=== PATIENT | male | born 1985 | race American Indian/Alaskan Native ===

== ENCOUNTER 2018-12-01 12:04 | Emergency (ER) | payer SELFPAY ==
[2018-12-01 12:48] LABS: Basophils # (Auto) 0.1 K/mm3 (0.0-0.1); Basophils % (Auto) 0.8 % (0.0-1.8); Eosinophils % (Auto) 0.1 % (0.0-4.3); Hematocrit 39.4 % (35.5-45.6); Hemoglobin 13.2 gm/dl (11.8-15.2); Lymphocytes # (Auto) 1.4 K/mm3 (1.2-5.4); Mean Corpuscular HGB Conc 34 % (32-34); Mean Corpuscular Volume 93 fl (84-94); Monocytes # (Auto) 0.8 K/mm3 (0.0-0.8); Monocytes % (Auto) 6.7 % (0.0-7.3); Platelet Count 277 K/mm3 (140-440); Red Blood Count 4.25 M/mm3 (3.65-5.03)
--- NOTE | 2018-12-01 12:51 | Emergency Department Report ---
HPI - General Chief Complaint: Psych Time Seen by Provider: 12/01/18 12:30 - HPI HPI: Room 7 The patient is 32-year-old male presenting with a chief complaint altered mental status. Per EMS the patient was found by police knocking on doors in the [facility] ent complex. The patient states he did so just so he could "make sure everything is alright." The patient states she came to the emergency department because he needs medications to help him focus. Patient denies suicidal or homicidal ideation. Patient denied auditory or visual hallucinations but at times appears to be responding to internal stimuli Location: Mental state Duration: [See above] Quality: Odd affect Severity: Moderate Modifying factors: [see above] Context: [see above] Mode of transportation: [not driving] ED Past Medical Hx - Past Medical History Hx Psychiatric Treatment: Yes (ADD, depression) - Surgical History Past Surgical History?: No - Family History Family history: no significant - Social History Smoking Status: Current Some Day Smoker (1/2 pack per day) Substance Use Type: Marijuana - Medications Home Medications: Home Medications Medication Instructions Recorded Confirmed Last Taken Type No Known Home Medications [No 06/17/14 06/17/14 Unknown History Reported Home Medications] ED Review of Systems ROS: Stated complaint: PSYCH EVAL Other details as noted in HPI Constitutional: no symptoms reported Eyes: denies: eye pain ENT: denies: throat pain Respiratory: no symptoms reported Cardiovascular: denies: chest pain Endocrine: no symptoms reported Gastrointestinal: denies: abdominal pain Genitourinary: denies: dysuria Musculoskeletal: denies: back pain Neurological: denies: headache Psychiatric: denies: auditory hallucinations, visual hallucinations, homicidal thoughts, suicidal thoughts Physical Exam - Physical Exam Vital Signs: Vital Signs 12/01/18 12:20 Temperature 98 F Pulse Rate 82 Respiratory 18 Rate Blood Pressure 145/69 O2 Sat by Pulse 99 Oximetry Physical Exam: GENERAL: The patient is well-developed well-nourished male sitting on stretcher not appearing to be in acute distress. Patient an odd/flat affect HEENT: Normocephalic. Atraumatic. Extraocular motions are intact. Patient has moist mucous membranes. NECK: Supple. No meningitic signs are noted. Trachea midline CHEST/LUNGS: Clear to auscultation. There is no respiratory distress noted. HEART/CARDIOVASCULAR: Regular. There is no tachycardia. There is no gallop rub or murmur. ABDOMEN: Abdomen is soft, nontender. Patient has normal bowel sounds. There is no abdominal distention. SKIN: There is no rash. There is no edema. There is no diaphoresis. NEURO: The patient is awake, alert, and oriented. The patient is cooperative. The patient has no focal neurologic deficits. The patient has normal speech MUSCULOSKELETAL: There is no evidence of acute injury. ED Course Vital Signs 12/01/18 12:20 Temperature 98 F Pulse Rate 82 Respiratory 18 Rate Blood Pressure 145/69 O2 Sat by Pulse 99 Oximetry ED Medical Decision Making - Lab Data Result diagrams: 12/01/18 12:34 12/01/18 12:34 Laboratory Tests 12/01/18 12/01/18 12/01/18 12:31 12:31 12:34 WBC RBC Hgb Hct MCV MCH MCHC RDW Plt Count Lymph % (Auto) [place] % (Auto) Eos % (Auto) Baso % (Auto) Lymph # [place] # Eos # Baso # Seg Neutrophils % Seg Neutrophils # Sodium Potassium Chloride Carbon Dioxide Anion Gap BUN Creatinine Estimated GFR BUN/Creatinine Ratio Glucose Calcium Urine Color Yellow Urine Turbidity Slightly-cloudy Urine pH 6.0 Ur Specific [place] 1.023 Urine Protein 30 mg/dl Urine Glucose (UA) Neg Urine Ketones Tr Urine Blood Neg Urine Nitrite Neg Urine Bilirubin Neg Urine Urobilinogen < 2.0 Ur Leukocyte Esterase Neg Urine WBC (Auto) 1.0 Urine RBC (Auto) 4.0 Urine Mucus Few Urine Sperm 2+ Salicylates < 0.3 L Urine Opiates Screen Presumptive negative Urine Methadone Screen Presumptive negative Acetaminophen Ur Barbiturates Screen Presumptive negative Ur Phencyclidine Scrn Presumptive negative Ur Amphetamines Screen Presumptive positive U Benzodiazepines Scrn Presumptive negative Urine Cocaine Screen Presumptive negative U Marijuana (THC) Screen Presumptive negative Drugs of Abuse Note Disclamer Plasma/Serum Alcohol 12/01/18 12/01/18 12/01/18 12:34 12:34 12:34 WBC RBC Hgb Hct MCV MCH MCHC RDW Plt Count Lymph % (Auto) [place] % (Auto) Eos % (Auto) Baso % (Auto) Lymph # [place] # Eos # Baso # Seg Neutrophils % Seg Neutrophils # Sodium 145 Potassium 3.8 Chloride 104.5 Carbon Dioxide 28 Anion Gap 16 BUN 8 L Creatinine 1.0 Estimated GFR > 60 BUN/Creatinine Ratio 8 Glucose 105 H Calcium 9.8 Urine Color Urine Turbidity Urine pH Ur Specific [place] Urine Protein Urine Glucose (UA) Urine Ketones Urine Blood Urine Nitrite Urine Bilirubin Urine Urobilinogen Ur Leukocyte Esterase Urine WBC (Auto) Urine RBC (Auto) Urine Mucus Urine Sperm Salicylates Urine Opiates Screen Urine Methadone Screen Acetaminophen < 5.0 L Ur Barbiturates Screen Ur Phencyclidine Scrn Ur Amphetamines Screen U Benzodiazepines Scrn Urine Cocaine Screen U Marijuana (THC) Screen Drugs of Abuse Note Plasma/Serum Alcohol < 0.01 12/01/18 12:34 WBC 12.5 H RBC 4.25 Hgb 13.2 Hct 39.4 MCV 93 MCH 31 MCHC 34 RDW 13.0 L Plt Count 277 Lymph % (Auto) 11.0 L [place] % (Auto) 6.7 Eos % (Auto) 0.1 Baso % (Auto) 0.8 Lymph # 1.4 Cocke # 0.8 Eos # 0.0 Baso # 0.1 Seg Neutrophils % 81.4 H Seg Neutrophils # 10.1 H Sodium Potassium Chloride Carbon Dioxide Anion Gap BUN Creatinine Estimated GFR BUN/Creatinine Ratio Glucose Calcium Urine Color Urine Turbidity Urine pH Ur Specific [place] Urine Protein Urine Glucose (UA) Urine Ketones Urine Blood Urine Nitrite Urine Bilirubin Urine Urobilinogen Ur Leukocyte Esterase Urine WBC (Auto) Urine RBC (Auto) Urine Mucus Urine Sperm Salicylates Urine Opiates Screen Urine Methadone Screen Acetaminophen Ur Barbiturates Screen Ur Phencyclidine Scrn Ur Amphetamines Screen U Benzodiazepines Scrn Urine Cocaine Screen U Marijuana (THC) Screen Drugs of Abuse Note Plasma/Serum Alcohol - Differential Diagnosis psychosis, delusional, intracranial mass, substance abuse Critical care attestation.: If time is entered above; I have spent that time in minutes in the direct care of this critically ill patient, excluding procedure time. ED Disposition Clinical Impression: Amphetamine abuse, Altered mental status Disposition: DC/TX-65 PSY HOSP/PSY UNIT Is pt being admited?: No Does the pt Need Aspirin: No Condition: Stable Time of Disposition: 14:16 (awaiting acceptance)
[2018-12-01 13:05] LABS: Bilirubin,Urine NEG (Negative); Blood,Urine NEG (Negative); Color,Urine Yellow (Yellow); Mucus,Urine FEW /HPF; Sperm,Urine 2+ /HPF (NP); Urobilinogen,Urine < 2.0 mg/dL (<2.0)
[2018-12-01 13:07] LABS: BUN/Creatinine Ratio 8; Blood Urea Nitrogen 8 mg/dL (9-20); Calcium 9.8 mg/dL (8.4-10.2); Hemolysis Index 1
[2018-12-01 13:11] LABS: Benzodiazepines Screen,Urine PRESUMPTIVE NEGATIVE; Cannabinoid Screen,Urine PRESUMPTIVE NEGATIVE; Cocaine Screen,Urine PRESUMPTIVE NEGATIVE; Methadone Screen,Urine PRESUMPTIVE NEGATIVE; Opiate Screen,Urine PRESUMPTIVE NEGATIVE
[2018-12-01 13:24] LABS: Amphetamine Screen,Urine PRESUMPTIVE POSITIVE
--- NOTE | 2018-12-01 14:09 | Cat Scan Report ---
CT scan of head without IV contrast: History: Medical clearance site. Findings: Ventricles are normal in size and midline in location. No evidence of acute ischemia, hemorrhage or mass. No extra axial fluid collection. Normal brainstem and cerebellum. Normal visualized sinuses and mastoid air cells. Impression: No acute intracranial abnormality.
--- NOTE | 2018-12-02 13:08 | Consultation ---
History of Present Illness - Reason for Consult Consult date: 12/02/18 Reason for consult: Mental Health Evaluation Requesting physician: TIFFANY SÁNCHEZ - Chief Complaint Chief complaint: "I was only trying to find a ayoub" - History of Present Psychiatric Illness 32-year-old AA male who presented to the ER for bizarre behavior. He was knocking on doors in the his apartment complex. Today the patient is calm, but disorganized during the assessment. He stated that he was looking for ayoub to get into the "weight room" at his apartment complex. His answers to questions were not logical. He pauses often to answer questions, possibly responding to some type of stimuli. Overall, the patient isn't a good historian at this time. No gestures of SI/Hi's. Medications and Allergies Allergies Allergy/AdvReac Type Severity Reaction Status Date / Time No Known Allergies Allergy Unverified 06/17/14 23:29 Home Medications Medication Instructions Recorded Confirmed Last Taken Type No Known Home Medications [No 12/01/18 12/01/18 Unknown History Reported Home Medications] Past psychiatric history - Past Medical History Past Medical History: No medical history Past Surgical History: No surgical history - past Psychiatric treatment and history psychiatric treatment history: Hx of substance abuse. Denies a fam psy hx. - Social History Social history: lives with family Mental Status Exam - Vital signs Last Vital Signs Temp 98.4 F 12/02/18 07:53 Pulse 120 H 12/02/18 07:53 Resp 20 12/02/18 07:53 BP 136/91 12/02/18 07:53 Pulse Ox 99 12/02/18 07:53 - Exam Narrative exam: MSE: Appearance: calm, cooperative Behavior: regular eye contact Speech: regular rate and tone Mood: "okay" Affect: congruent to mood Thought Process: disorganized Thought Content: no gestures of SI/HI's, paranoia Motor Activity: ambulatory Cognition: A/O x3 Insight: poor Judgment: poor Results Result Diagrams: 12/01/18 12:34 12/01/18 12:34 Abnormal lab results 12/01/18 12/01/18 12/01/18 Range/Units 12:34 12:34 12:34 BUN 8 L (9-20) mg/dL Glucose 105 H (75-100) mg/dL Salicylates < 0.3 L (2.8-20.0) mg/dL Acetaminophen < 5.0 L (10.0-30.0) ug/mL All other labs normal. Assessment and Plan Assessment and plan: Impression: Unspecified Psychosis. Substance Use Do (amphetamines). Today the patient is calm, but disorganized during the assessment. DDx: Substance Induced Psychosis Recommendation/Plan: Continue 1013 and start Seroquel 100 mg Po HS for psychosis. Attempted to discuss possible metabolic side effects of Seroquel with the patient. Dispo: The patient was referred to inpatient psy services. Staffed with Dr Benny Hurt.
--- NOTE | 2018-12-03 15:09 | Progress Note ---
Subjective - Reason for Consult Consult date: 12/03/18 Reason for consult: Psychiatric Follow-up Evaluation - Chief Complaint Chief complaint: "I'm good" Patient is a 32-year-old AA male who presented to the ER for bizarre behavior. He was knocking on doors in the his apartment complex. He states that he was looking for ayoub to get into the "weight room" at his apartment complex. He states, " I don't know why they brought me here. I was wandering. I had a lot on my mind." Today the patient is calm, but disorganized during the assessment. He continues to exhibit bizarre behavior. Patient appears to be thought blocking and internally preoccupied. Patient responses are delayed and inappropriate. He reports appropriate sleep and appetite. Mental Status Exam - Vital signs Last Vital Signs Temp 98.0 F 12/03/18 14:24 Pulse 118 H 12/03/18 14:24 Resp 17 12/03/18 14:24 BP 131/85 12/03/18 14:24 Pulse Ox 100 12/03/18 14:24 - Exam Narrative exam: Mental Status Exam Appearance: calm, cooperative Behavior: regular eye contact Speech: regular rate and tone; delayed responses Mood: "I'm good" Affect: congruent to mood Thought Process: disorganized, loose associations, thought blocking, impoverished Thought Content: no gestures of SI/HI's; paranoia and internally preoccupied Motor Activity: ambulatory Cognition: A/O x 3 Insight: poor Judgment: poor Assessment and Plan Impression: Unspecified Psychosis. Substance Use Do (amphetamines). Today the patient is calm, but disorganized during the assessment. Patient is attempting to minimize psychosis, although symptoms are overt. DDx: Substance Induced Psychosis Recommendation/Plan: 1. Continue 1013. 2. Start Seroquel 200 mg Po HS for psychosis. Attempted to discuss possible metabolic side effects of Seroquel with the patient. Disposition: The patient was referred to inpatient psychiatric services. Staffed with Dr. Benny Hurt.
--- NOTE | 2018-12-04 13:43 | Progress Note ---
Subjective - Reason for Consult Consult date: 12/04/18 Reason for consult: Psychiatric Follow-up Evaluation - Chief Complaint Chief complaint: "I'm feeling good" Patient is a 32-year-old AA male who presented to the ER for bizarre behavior. Today the patient is calm, but disorganized during the assessment. He continues to exhibit bizarre behavior. Patient appears to be thought blocking and internally preoccupied. Patient responses are delayed and inappropriate. Today his thoughts/insight is improved. He verbalizes " I need medicine for my head." He reports appropriate sleep and appetite. Patient is intrusive with poor boundaries. Patient endorses intermittent suicidal ideations, paranoid delusions, and auditory hallucinations. He denies HI's. Patient is medication compliant. No side effects noted/reported. Mental Status Exam - Vital signs Last Vital Signs Temp 97.4 F L 12/04/18 08:02 Pulse 134 H 12/04/18 08:02 Resp 18 12/04/18 09:28 BP 111/63 12/04/18 08:02 Pulse Ox 95 12/04/18 08:02 - Exam Narrative exam: Mental Status Exam Appearance: calm, cooperative Behavior: regular eye contact Speech: regular rate and tone; delayed responses Mood: "I'm good" Affect: congruent to mood Thought Process: disorganized, loose associations, thought blocking, impoverished Thought Content: no gestures of HI's; + SI's, AH's, and paranoid delusions Motor Activity: ambulatory Cognition: A/O x 3 Insight: poor Judgment: poor Assessment and Plan Impression: Unspecified Psychosis. Substance Use Do (amphetamines). Today the patient is calm, but disorganized during the assessment. Patient endorses intermittent SI's and psychosis. DDx: Substance Induced Psychosis Recommendation/Plan: 1. Continue 1013. 2. Continue Seroquel 200 mg Po HS for psychosis. Attempted to discuss possible metabolic side effects of Seroquel with the patient. Disposition: The patient referred to inpatient psychiatric services. Staffed with Dr. Benny Hurt.
--- NOTE | 2018-12-05 09:57 | Progress Note ---
Subjective - Reason for Consult Consult date: 12/05/18 Reason for consult: Psychiatry Follow-up - Chief Complaint Chief complaint: "I need to out of here" 32-year-old AA male who presented to the ER for bizarre behavior. Today the patient is calm and cooperative during the assessment. He stated that he is well enough to be discharged. The patient is more lucid today per the EMR. He stated that has a "job to get too." He sated that he will consider rehab services when discharged. He denies SI/HI's and AVH's. He denies any side effects of his medication. i Mental Status Exam - Vital signs Last Vital Signs Temp 97.7 F 12/05/18 08:14 Pulse 82 12/05/18 08:14 Resp 18 12/05/18 08:14 BP 101/68 12/05/18 08:14 Pulse Ox 99 12/05/18 08:14 - Exam Narrative exam: MSE: Appearance: calm, cooperative Behavior: regular eye contact Speech: regular rate and tone Mood: "okay" Affect: congruent to mood Thought Process: circumstantial Thought Content: denies SI/Hi's and AVH's Motor Activity: ambulatory Cognition: A/O x3 Insight: variable to fair Judgment: variable to fair Assessment and Plan Impression: Unspecified Psychosis. Substance Use DO (amphetamines). Today the patient is calm, but disorganized during the assessment. DDx: Substance Induced Psychosis Recommendation/Plan: Reevaluate the patient's 1013 in 24 hours. Continue Seroquel 200 mg Po HS for psychosis. Discussed possible metabolic side effects of Seroquel with the patient, he verbalized understanding. Dispo: If the patient's 1013 is rescinded in 24 hours, he can follow up with [facility] for outpatient pay services. Staffed with Dr Benny Hurt.
[2018-12-06 07:40] VITALS: BP 117/73
--- NOTE | 2018-12-06 08:20 | Progress Note ---
Subjective - Reason for Consult Consult date: 12/06/18 Reason for consult: Psychiatry Follow-up - Chief Complaint Chief complaint: "I'm well" 32-year-old AA male who presented to the ER for bizarre behavior. Today the patient is calm and cooperative during the assessment. He stated that he plan to follow up with outpatient rehab services. He stated he must get his life together. He denies SI/HI's and AVH's. He denies any side effects of his medications. Mental Status Exam - Vital signs Last Vital Signs Temp 97.8 F 12/06/18 07:39 Pulse 98 H 12/06/18 07:39 Resp 18 12/06/18 07:39 BP 117/73 12/06/18 07:39 Pulse Ox 99 12/06/18 07:39 - Exam Narrative exam: MSE: Appearance: calm, cooperative Behavior: regular eye contact Speech: regular rate and tone Mood: "okay" Affect: congruent to mood Thought Process: more organized Thought Content: denies SI/Hi's and AVH's Motor Activity: ambulatory Cognition: A/O x3 Insight: appropriate Judgment: appropriate Assessment and Plan Impression: Unspecified Psychosis. Substance Use DO (amphetamines). Today the patient is calm and cooperative during the assessment. The patient's psychosis has resolved. DDx: Substance Induced Psychosis Recommendation/Plan: Rescind 1013. Discussed the importance to abstain from recreational drug use with the patient. he verbalized understanding. Dispo: The patient can follow up with [facility] for outpatient rehab services. Will staff with Dr Benny Hurt.
== END 2018-12-06 09:53 | disposition home or self-care (01) ==
LOC: EEVIPCON 12:04 → ED 12:04
DX: F29 Unspecified psychosis not due to a substance or known physiological condition (principal); R41.82 Altered mental status, unspecified; F15.10 Other stimulant abuse, uncomplicated; F32.9 Major depressive disorder, single episode, unspecified; F17.200 Nicotine dependence, unspecified, uncomplicated
CPT/HCPCS: 36415; 70450; 80048; 80307; 81001; 85025; 99285; G0480; 80320

== ENCOUNTER 2020-05-15 01:36 | Emergency (ER) | payer SELFPAY | END 2020-05-15 02:00 | disposition left against medical advice (07) | LOC: ED 01:36 | DX: M25.571 Pain in right ankle and joints of right foot (principal); Z53.21 Procedure and treatment not carried out due to patient leaving prior to being seen by health care provider ==